=== PATIENT | female | born 1990 | race Caucasian/White ===

== ENCOUNTER 2018-12-05 21:32 | Emergency (ER) | payer OTHER ==
[~2018-12-05] VITALS: Ht 154.9 cm; Wt 50.3 kg
[2018-12-05 21:35] VITALS: BP 130/85
--- NOTE | 2018-12-05 21:38 | NUR ---
PT AMBULATED TO BED 8 WITH VSS.
[2018-12-05] MEDS ORDERED: NACL 0.9% 1,000 ML IV ONE (21:50)
[2018-12-05] MEDS ORDERED: ONDANSETRON 4 MG/2 ML VIAL IVP ONE (21:50)
--- NOTE | 2018-12-05 22:14 | NUR ---
PT PRESENTS TO ED WITH C/O N/V DIZZINESS X 2HRS S/P EATING IN N OUT. ABD IS SOFT NON TENDER, BOWEL SOUNDS PRESENT TO ALL QUADRANTS. NO S/S OF DISTRESS NOTED. PT PLACED INTO BED PENDING MD TIMMONS. PMH--DENIES RX--DENIES
[2018-12-05 23:00] VITALS: BP 127/77
--- NOTE | 2018-12-05 23:00 | NUR ---
Patient discharged with v/s stable. Written and verbal after care instructions given and explained. Patient alert, oriented and verbalized understanding of instructions. Ambulatory with steady gait. All questions addressed prior to discharge. ID band removed. Patient advised to follow up with PMD. Rx of Motrin and Zofran given. Patient educated on indication of medication including possible reaction and side effects. Opportunity to ask questions provided and answered.
== END 2018-12-05 23:00 | disposition home or self-care (01) ==
LOC: MED 21:32
DX: R11.2 Nausea with vomiting, unspecified (principal); R19.7 Diarrhea, unspecified; R10.13 Epigastric pain
CPT/HCPCS: 81002; 81025; 96361; 96374; 99283; J2405; J7030

== ENCOUNTER 2019-04-24 23:40 | Emergency (ER) | payer OTHER ==
[~2019-04-24] VITALS: Ht 154.9 cm; Wt 52.2 kg
[2019-04-24 23:45] VITALS: BP 124/81
--- NOTE | 2019-04-24 23:49 | NUR ---
PT AMBULATED TO BED #7
[2019-04-24 23:55] VITALS: BP 124/81
--- NOTE | 2019-04-24 23:55 | NUR ---
PT IS A 28 Y/O FEMALE WHO PRESENTS TO THE ED C/O DIARRHEA. PT STATES THAT SYMPTOMS STARTED YESTERDAY, PT STATES, "I THINK I'M DEHYDRATED." PT REPORTS 6/10 ACHING HEADACHE PAIN THAT DOES NOT RADIATE AND DIZZINESS. PT STATES THAT SHE STARTED HAVING 3 BM TODAY. PT DENIES CP, SOB, REPORTS DIARRHEA DENIES NAUSEA/VOMITING. PT AWAKE AND ALERT, RR EVEN/UNLABORED. PT REPOSITIONED FOR COMFORT, BED IN LOWEST POSITION. ER MD DR. SALCEDO NOTIFIED. WILL CONTINUE TO MONITOR. [facility] HX: NONE
[2019-04-25] MEDS ORDERED: KETOROLAC 60 MG/2 ML VIAL IM ONE (00:15)
--- NOTE | 2019-04-25 00:30 | NUR ---
pt awake. seated on bed. all needs met. will continue to monitor
[2019-04-25] MEDS ORDERED: DICYCLOMINE HCL LIQUID 10 MG/5 ML UDC PO ONE (01:15)
[2019-04-25] MEDS ORDERED: ONDANSETRON 4 MG TAB PO ONE (01:15)
--- NOTE | 2019-04-25 01:37 | NUR ---
Patient discharged with v/s stable. Written and verbal after care instructions given and explained. Patient alert, oriented and verbalized understanding of instructions. Ambulatory with steady gait. All questions addressed prior to discharge. ID band removed. Patient advised to follow up with PMD. Rx of Bentyl and zofran given. Patient educated on indication of medication including possible reaction and side effects. Opportunity to ask questions provided and answered.
== END 2019-04-25 01:37 | disposition home or self-care (01) ==
LOC: MED 23:40
DX: B34.9 Viral infection, unspecified (principal); R42 Dizziness and giddiness
CPT/HCPCS: 96372; 99283; J1885; Q0162